=== PATIENT | female | born 1965 | race African-American/Black ===

== ENCOUNTER 2019-12-20 20:00 | Emergency (ER) | payer SELFPAY ==
[~2019-12-20 20:00] MED LIST: Iopamidol 370 76% 100 ML VIAL ONE
[2019-12-20] MEDS ORDERED: Morphine 4 MG/ML VIAL ONE ×2 (20:36→21:28)
[2019-12-20] MEDS ORDERED: Ondansetron PF 4 MG/2 ML Vial ONE (20:36)
[2019-12-20 20:38] LABS: #Eosinphils 0.2 thou/uL (0.0-0.7); #Lymphocytes 1.6 thou/uL (1.20-3.40); #Monocytes 0.4 thou/uL (0.11-0.59); #Neutrophils 4.9 thou/uL (1.40-6.50); %Basophils 0.3 % (0.0-1.0); %Eosinophils 2.7 % (0.0-10.0); %Lymphocytes 22.5 % (21.0-51.0); %Monocytes 5.7 % (0.0-10.0); %Neutrophils 68.7 % (42.0-75.0); Hemoglobin 12.3 g/dL (12.0-16.0); Mean Corpuscular HGB CONC 32.2 g/dL (32.0-36.0); Mean Corpuscular Hemoglobin 29.7 pg (27.0-31.0); Mean Corpuscular Volume 92.3 fL (78.0-98.0); Platelet Count 293 thou/uL (130-400); RBC Distribution Width 11.5 % (11.5-14.5); Red Blood Cell (RBC) Count 4.16 mill/uL (4.20-5.40); White Blood Cell (WBC) Count 7.1 thou/uL (4.8-10.8)
[2019-12-20 20:59] LABS: Bacteria/HPF None Seen HPF (None Seen); Bilirubin Negative (Negative); Blood, Urine Trace (Negative); Clarity Clear (Clear); Glucose, Urine (Dipstick) Normal (Negative); Ketone, Urine Negative (Negative); Leukocyte 25 Leu/uL (Negative); Nitrite Negative (Negative); Protein, Urine (Dipstick) Negative (Neg-Trace); RBC/HPF 0-3 HPF (0-3); Specific Gravity, Urine 1.026 (1.002-1.036); Squamous Epithelial 0-3 HPF (0-3); Urobilinogen Normal mg/dL (Less than 2); pH, Urine 5.5 (5.0-9.0)
[2019-12-20 21:00] LABS: ALT (SGPT) 27 U/L (8-55); AST (SGOT) 31 U/L (5-34); Albumin 4.2 g/dL (3.5-5.0); Alkaline Phosphatase 96 U/L (40-110); Anion Gap 13 mmol/L (10-20); BUN (Urea Nitrogen) 20 mg/dL (9.8-20.1); Bilirubin, Total 0.2 mg/dL (0.2-1.2); Calc. Creatinine Clearance 0 mL/min (70-130); Calcium 8.4 mg/dL (7.8-10.44); Carbon Dioxide 23 mmol/L (22-29); Chloride 107 mmol/L (98-107); Estimated GFR-MDRD 63; Globulin 3.3 g/dL (2.4-3.5); Glucose 92 mg/dL (70-105); Lipase 117 U/L (8-78); Potassium 4.6 mmol/L (3.5-5.1); Protein, Total 7.5 g/dL (6.0-8.3); Sodium 138 mmol/L (136-145)
[2019-12-20] MEDS ORDERED: Fentanyl 100 MCG/2 ML VIAL ONE ×2 (21:32→23:19)
--- NOTE | 2019-12-20 22:07 | CT ---
CT OF THE ABDOMEN AND PELVIS WITH IV CONTRAST: 12/20/19 PROVIDED CLINICAL HISTORY: Bilateral flank pain. FINDINGS: No comparisons. The visualized lung bases are free of significant opacity. There is a small hiatal hernia. Postoperat cait changes of gastric bypass are demonstrated. There is no evidence for bowel obstruction. No inflam matory fat stranding, free fluid or free air apparent. The gallbladder is surgically absent with presumably attendant prominence of the intrahepatic biliary system. The appendix appears normal. The liver, spleen, pancreas, kidneys, and adrenal glands demonstrate no significant abnormality. Subc entimeter renal hypodensities are demonstrated, too small to definitively characterize but statistica lly cysts. The urinary bladder appears unremarkable. There is a 3.2 cm left adnexal cystic structure. There is a subcentimeter hypodensity involving the subcapsular portion of the right hepatic lobe infe riorly, too small to definitively characterize but statistically a benign lesion such as hemangioma. The osseous structures demonstrate no concerning lytic or blastic lesions. IMPRESSION: 1. No evidence for an acute process. 2. 3.2 cm left adnexal cystic structure, possibly physiologic in a premenopausal female. 12 week follow-up pelvic ultrasound is recommended. POS: AJ
== END 2019-12-20 23:43 | disposition home or self-care (01) ==
LOC: ERS 20:00
DX: R10.9 Unspecified abdominal pain (principal); M19.90 Unspecified osteoarthritis, unspecified site; M79.7 Fibromyalgia
CPT/HCPCS: 74177; 80053; 81003; 81015; 83690; 85025; 96374; 96375; 96376; J2270; J2405; J3010; Q9967

== ENCOUNTER 2020-05-01 20:21 | Emergency (ER) | payer MEDICARE, MEDICAID ==
[2020-05-02 08:02] LABS: SARS-CoV-2 PCR by NAA DETECTED (NotDetected)
== END 2020-05-01 21:07 | disposition home or self-care (01) ==
LOC: ERS 20:21
DX: U07.1 COVID-19 (principal); M79.7 Fibromyalgia; M19.90 Unspecified osteoarthritis, unspecified site
CPT/HCPCS: 99284; U0003; U0005; 87635

== ENCOUNTER 2020-08-21 16:55 | Emergency (ER) | payer MEDICAID, MEDICARE ==
[2020-08-21] MEDS ORDERED: Ketorolac Tromethamine 30 MG/ML VIAL ONE (20:22)
[2020-08-21] MEDS ORDERED: Cyclobenzaprine 10 MG TAB ONE (20:22)
[2020-08-21] MEDS ORDERED: Dexamethasone 10 MG/ML VIAL ONE (20:24)
== END 2020-08-21 20:55 | disposition home or self-care (01) ==
LOC: ERS 16:55
DX: M54.42 Lumbago with sciatica, left side (principal); M19.90 Unspecified osteoarthritis, unspecified site; Z87.42 Personal history of other diseases of the female genital tract
CPT/HCPCS: 96372; 99283; J1100; J1885